=== PATIENT | female | born 1940 | race Caucasian/White ===

== ENCOUNTER → 2021-02-16 12:47 | Outpatient (BNVA) | payer MEDICARE, BC, SELFPAY | PROVIDERS: Referring Provider Family Medicine; Visit Provider Specialist | DX: R42 Dizziness and giddiness (principal); R55 Syncope and collapse; E11.42 Type 2 diabetes mellitus with diabetic polyneuropathy; Z79.84 Long term (current) use of oral hypoglycemic drugs; R26.89 Other abnormalities of gait and mobility; R20.0 Anesthesia of skin; R20.2 Paresthesia of skin | CPT/HCPCS: 99204; 99205 ==

== ENCOUNTER 2021-03-16 10:10 | Outpatient (CLI) | payer MEDICARE, BC, SELFPAY ==
--- NOTE | 2021-03-16 11:00 | MR_ITS ---
WS: [id number] MRI BRAIN WITHOUT CONTRAST HISTORY: R42 - Dizziness and giddiness COMPARISON: None available. TECHNIQUE: Diffusion imaging, multiplanar T1, T2 and FLAIR imaging obtained. No evidence for acute infarct or hemorrhage. Carreon-white matter differentiation is normal. Mild bilateral atrophy. Prior lacunar infarct LEFT posterior external capsule. There are a few scatte red T2 and FLAIR signal hyperintensities from microvascular ischemic disease. Very mild ventriculomegaly from atrophy. No inferior displacement of cerebellar tonsils. The sella turcica and pituitary gland are unremarkabl e. Dural venous sinuses and craig of Mena demonstrate no abnormality on this unenhanced studies. Paranasal sinuses: Clear. Mastoid air cells: Normal. Calvarium and scalp: Intact. MR/MR head wo con* [id number] IMPRESSION: 1. No acute infarct. 2. Prior small lacunar infarct in the LEFT external capsule and mild chronic m icrovascular ischemic disease.
== END 2021-03-16 10:11 | disposition home or self-care (01) ==
LOC: RADSHAW 10:16
PROVIDERS: PCP Family Medicine; Visit Provider Specialist
DX: R42 Dizziness and giddiness (principal)
CPT/HCPCS: 70551; 82607; 82746; 84443; 85651

== ENCOUNTER 2021-03-16 12:50 | Outpatient (CLI) | payer MEDICARE, BC, SELFPAY ==
[2021-03-16 14:10] LABS: Thyroid Stimulating Hormone 2.75 uIU/mL (0.27-4.20)
[2021-03-16 14:36] LABS: Folate Level 19.1 ng/mL (4.8-37.3)
[2021-03-16 16:28] LABS: Vitamin B12 > 2000 pg/mL (232-1245)
[2021-03-18 11:59] LABS: Erythrocyte Sedimentation Rate 2 mm/hr (0-15)
== END 2021-03-16 12:51 | disposition home or self-care (01) ==
LOC: LAB 12:54
PROVIDERS: PCP Family Medicine; Visit Provider Specialist
DX: R20.0 Anesthesia of skin (principal); R20.2 Paresthesia of skin
CPT/HCPCS: 82607; 82746; 84443; 85651

== ENCOUNTER → 2021-03-30 10:13 | Outpatient (BNVA) | payer MEDICARE, BC, SELFPAY | PROVIDERS: PCP Family Medicine; Visit Provider Specialist | DX: R55 Syncope and collapse (principal) | CPT/HCPCS: 95816 ==

== ENCOUNTER → 2021-05-04 12:48 | Outpatient (BNVA) | payer MEDICARE, BC, SELFPAY | PROVIDERS: PCP Family Medicine; Visit Provider Specialist | DX: R42 Dizziness and giddiness (principal); R26.89 Other abnormalities of gait and mobility | CPT/HCPCS: 99213; 99214 ==